=== PATIENT | male | born 1960 | race Caucasian/White ===

== ENCOUNTER → 2018-09-07 | Day surgery (SDC) | payer BC ==
[~2018-09-07] MED LIST: Bupivacaine 0.5% 10 ML SDV ONE; Dexamethasone 4 MG/ML SDV IV ONE; Glycopyrrolate 0.2 MG/ML SDV IVPUSH ONE; HYDROmorphone 1 MG/ML Syringe IV ONE; HYDROmorphone 1 MG/ML Syringe IVPUSH PRN; HYDROmorphone 2 MG Tab PO ONE; Ketorolac 30 MG/ML SDV IVPUSH ONE; Lactated Ringers 1,000 ML IV SCH; Midazolam 1 MG/ML 2 ML SDV IV ONE; Neostigmine Methylsulfate 10 MG/10 ML MDV IV ONE; Ondansetron 4 MG/2 ML SDV IV ONE; Ondansetron 4 MG/2 ML SDV IVPUSH PRN; Propofol 200 MG/20 ML SDV IV ONE; Rocuronium 50 MG/5 ML Vial IV ONE; fentaNYL 100 MCG/2 ML SDV IV ONE
--- NOTE | 2018-09-07 15:18 | OR ---
DATE OF OPERATION: 09/07/2018 PREOPERATIVE DIAGNOSIS: RECURRENT INCISIONAL HERNIA. POSTOPERATIVE DIAGNOSIS: RECURRENT INCISIONAL HERNIA. SURGEON: Ollie Giraldo MD PROCEDURE: LAPAROSCOPIC REPAIR OF RECURRENT INCISIONAL HERNIA WITH MESH. ANESTHESIA: General. ESTIMATED BLOOD LOSS: Minimum. SPECIMEN: None. INDICATION FOR PROCEDURE: This 58-year-old male has had a history of a laparoscopic cholecystectomy at the trocar site. He had a hernia in that site and this has been repaired twice with mesh both times this has recurred. I presented the option to him of laparoscopic approach instead of an open approach again. DESCRIPTION OF PROCEDURE: After adequate preparation, a 5 mm trocar was placed in the left upper quadrant and the abdomen was insufflated. Three other trocars were placed under direct vision. Examination did show a much larger hernia than I had expected. This measures approximately 2 x 3 inches and apparently it appears that the whole hernia has come apart. There is no evidence of any repair. I marked out on the external abdomen a place for overlapping mesh. A 6- inch piece of Prolene mesh was inserted through the 11 mm epigastric trocar site. This was positioned over the abdomen and sequentially tacked in place. This adequately covered the hernia defect with at least a 2- inch margin on both sides superiorly, inferiorly, and both lateral edges. No other abnormalities were noted. The abdomen was desufflated and the skin was closed with Vicryl. The size of the Prolene mesh was 6 inches x 6 inches. ANTWAN/AARON /[id number]
[2018-09-07] MEDS: Acetaminophen/HYDROcodone 325-5 MG Tab PO PRN ×2 (18:07→23:16)
[2018-09-08] MEDS: Acetaminophen/HYDROcodone 325-5 MG Tab PO PRN (05:08)
--- NOTE | 2018-09-08 08:08 | PCM.SN ---
- Free Text/Narrative Note: Doing better this AM. Pain better controlled.l PO adequate with no Nausea. Wounds OK. Post op instructions given. Dilaudid 2mg script given for pain contol at home. (#30). Can discharge today. Dr. Giraldo
== END | disposition home or self-care (01) ==
LOC: CC.SDS 08:03
PROVIDERS: ATTEND Surgery
DX: K43.2 Incisional hernia without obstruction or gangrene (principal); E66.9 Obesity, unspecified; Z68.32 Body mass index [BMI] 32.0-32.9, adult; G47.30 Sleep apnea, unspecified; Z99.89 Dependence on other enabling machines and devices; Z90.49 Acquired absence of other specified parts of digestive tract; Z88.5 Allergy status to narcotic agent
CPT/HCPCS: 49656; A9270; C1781; J1100; J1170; J1885; J2250; J2405; J2704; J2710; J3010; J3490; J7120

== ENCOUNTER 2018-09-09 18:50 | Emergency (ER) | payer BC ==
[2018-09-09] MEDS ORDERED: Sodium Chloride 0.9% 1,000 ML ONE (18:57)
[2018-09-09] MEDS ORDERED: HYDROmorphone 1 MG/ML Syringe IVPUSH ONE ×2 (19:02→22:07)
[2018-09-09] MEDS ORDERED: Ondansetron 4 MG/2 ML SDV IVPUSH STA (19:02)
--- NOTE | 2018-09-09 19:12 | EDM.PDOC ---
ED HPI GENERAL MEDICAL PROBLEM - General Chief Complaint: Gastrointestinal Problem Stated Complaint: constipated post-op Time Seen by Provider: 09/09/18 18:50 Source of Information: Reports: Patient History Limitations: Reports: No Limitations - History of Present Illness INITIAL COMMENTS - FREE TEXT/NARRATIVE: This patient is a 58 year old male that presents to the ER. Patient reports that on Monday he had umbilical hernia repair. Patient reports due to pain he had to be admitted over night. He was discharged home on Dilaudid for pain. He was able to get up and ambulate in the [place] on Monday and pain had improved to go home. Patient reports that he has not had a BM since surgery. Patient reports he is taking his oral dilaudid medication, but last dose was a 3am. Patient reports he stopped taking the pain medication because he thought it was causing constipation. The patient reports since discharge his abdomen has started hurting. He reports having pain and fullness. Patient reports that he had not had any gas. Then earlier today he took the mag citrate for constipation , than he started having cramping. He repots on the way here he did have some small gas. Patient reports having nausea. Patient denies zepeda, dizziness, v, d, f , cp, soa. Patient does report having back pain. Onset: Gradual Onset Date: 09/08/18 Duration: Constant, Getting Worse Location: Reports: Abdomen Quality: Reports: Other (Cramping) Severity: Moderate Improves with: Reports: None Worsens with: Reports: None Associated Symptoms: Reports: Loss of Appetite, Nausea/Vomiting. Denies: Confusion, Chest Pain, Cough, cough w sputum, Diaphoresis, Fever/Chills, Headaches, Malaise, Rash, Seizure, Shortness of Breath, Syncope, Weakness Treatments RECEIVING SUPERVISOR: Reports: Other (see below) Other Treatments RECEIVING SUPERVISOR: Mag Citrate Abdominal Pain Score (Numeric/FACES): 6 - Related Data Allergies Allergy/AdvReac Type Severity Reaction Status Date / Time morphine Allergy Other Verified 09/09/18 19:25 oxycodone Allergy Other Verified 09/09/18 19:25 Home Meds: Home Meds Minocycline [Minocin] 100 mg PO DAILY PRN 09/07/18 [History] HYDROmorphone [Dilaudid] 2 mg PO Q4H PRN 09/09/18 [History] ED ROS GENERAL - Review of Systems Review Of Systems: See Below Constitutional: Reports: Decreased Appetite HEENT: Reports: No Symptoms Respiratory: Reports: No Symptoms Cardiovascular: Reports: No Symptoms. Denies: Chest Pain, Edema, Lightheadedness Endocrine: Reports: No Symptoms GI/Abdominal: Reports: Abdominal Pain, Constipation, Decreased Appetite, Distension, Nausea. Denies: Vomiting : Reports: No Symptoms Musculoskeletal: Reports: No Symptoms Skin: Reports: Wound (hernia repair wounds stomach. ) Neurological: Reports: No Symptoms Psychiatric: Reports: No Symptoms Hematologic/Lymphatic: Reports: No Symptoms Immunologic: Reports: No Symptoms ED EXAM, GI/ABD - Physical Exam Exam: See Below Exam Limited By: No Limitations General Appearance: Alert, WD/WN, No Apparent Distress, Anxious Eyes: Bilateral: Normal Appearance Ears: Normal External Exam, Normal Canal, Hearing Grossly Normal, Normal TMs Nose: Normal Inspection, Normal Mucosa, No Blood Throat/Mouth: Normal Inspection, Normal Lips, Normal Teeth, Normal Gums, Normal Oropharynx, Normal Voice, No Airway Compromise Head: Atraumatic, Normocephalic Neck: Normal Inspection, Supple, Non-Tender, Full Range of Motion Respiratory/Chest: No Respiratory Distress, Lungs Clear, Normal Breath Sounds, No Accessory Muscle Use, Chest Non-Tender Cardiovascular: Normal Peripheral Pulses, Regular Rate, Rhythm, No Edema, No Gallop, No JVD, No Murmur, No Rub GI/Abdominal Exam: Distended (severe), Guarding, Tender (Moderate/Severe throughout. ), Abnormal Bowel Sounds (Hypoative upper abd bowel sounds. Absent RLQ, LLQ. ), Other (recent surgical wounds. No redness, heat, drainage from incisions. ) (Male) Exam: Deferred Rectal (Males) Exam: Deferred Back Exam: Normal Inspection, Full Range of Motion. No: CVA Tenderness (L), CVA Tenderness (R), Decreased Range of Motion, Muscle Spasm, Paraspinal Tenderness Extremities: Normal Inspection, Normal Range of Motion, Non-Tender, No Pedal Edema, Normal Capillary Refill Neurological: Alert, Oriented, Normal Cognition, Normal Gait, No Motor/Sensory Deficits Psychiatric: Normal Affect, Normal Mood Skin Exam: Warm, Dry, Intact, Normal Color, No Rash Lymphatic: No Adenopathy EKG INTERPRETATION EKG Date: 09/09/18 Time: 19:18 Rhythm: NSR Rate (Beats/Min): 74 ST-T: Normal Course - Vital Signs Last Recorded V/S: Last Vital Signs Temp 97.7 F 09/09/18 21:00 Pulse 69 09/09/18 21:00 Resp 16 09/09/18 21:00 BP 138/80 09/09/18 21:00 Pulse Ox 96 09/09/18 21:00 - Orders/Labs/Meds Orders: Active Orders 24 hr Category Date Time Status Abdomen Pelvis w Cont [CT] Stat Exams 09/09/18 19:35 Taken Chest w Cont [CT] Stat Exams 09/09/18 19:35 Taken CULTURE BLOOD [BC] Stat Lab 09/09/18 19:15 Received CULTURE BLOOD [BC] Stat Lab 09/09/18 19:25 Received Blood Culture x2 Reflex Set [OM.PC] Stat Oth 09/09/18 19:01 Ordered Labs: Laboratory Tests 09/09/18 09/09/18 09/09/18 Range/Units 19:15 19:15 19:25 WBC 12.4 H (5.0-10.0) 10^3/uL RBC 5.69 (4.50-6.00) 10^6/uL Hgb 17.8 (14.0-18.0) g/dL Hct 51.5 (40.0-54.0) % MCV 90.5 (82.0-94.0) fL MCH 31.3 (27.0-32.0) pg MCHC 34.6 (33.0-38.0) g/dL RDW Coeff of Angelica 13.6 (11.0-15.0) % Plt Count 307 (150-400) 10^3/uL Neut % (Auto) 78.4 (35-85) % Lymph % (Auto) 11.0 (10-55) % Cal[place]oun % (Auto) 9.1 (0-16) % Eos % (Auto) 1.3 (0-5) % Baso % (Auto) 0.2 (0-3) % Neut # (Auto) 9.69 H (1.80-7.00) 10^3/uL Lymph # (Auto) 1.36 (1.00-4.80) 10^3/uL Calhoun # (Auto) 1.13 H (0.00-0.80) 10^3/uL Eos # (Auto) 0.16 (0.00-0.45) 10^3/uL Baso # (Auto) 0.02 10^3/uL Sodium 138 (136-145) mEq/L Potassium 4.1 (3.5-5.0) mEq/L Chloride 98 (98-106) mEq/L Carbon Dioxide 31 (21-32) mmol/L BUN 17 (7-18) mg/dL Creatinine 1.1 (0.7-1.3) mg/dL Est Cr Clr Drug Dosing 82.30 mL/min Estimated GFR (MDRD) > 60 (>=60) mL/min Glucose 121 H (75-99) mg/dL Lactic Acid 1.0 (0.4-2.0) mmol/L Calcium 9.2 (8.4-10.1) mg/dL Total Bilirubin 1.5 H (0.0-1.0) mg/dL AST 52 H (15-37) U/L ALT 64 (12-78) U/L Alkaline Phosphatase 126 H (46-116) U/L Creatine Kinase (35-232) U/L Troponin I (0.00-0.06) ng/mL Total Protein 7.8 (6.4-8.2) g/dL Albumin 3.8 (3.4-5.0) g/dL Amylase (25-115) U/L Urine Color (YELLOW) Urine Appearance (CLEAR) Urine pH (4.5-8.0) Ur Specific [place] (1.003-1.020) Urine Protein (NEGATIVE) mg/dL Urine Glucose (UA) (NEGATIVE) mg/dL Urine Ketones (NEGATIVE) mg/dL Urine Occult Blood (NEGATIVE) Urine Nitrite (NEGATIVE) Urine Bilirubin (NEGATIVE) Urine Urobilinogen (0.2-1.0) EU/dL Ur Leukocyte Esterase (NEGATIVE) Urine RBC (0-5) /HPF Urine WBC (0-5) /HPF Ur Epithelial Cells (NOT SEEN) /HPF Urine Bacteria (NOT SEEN) /HPF Urine Mucus (NOT SEEN) /HPF 09/09/18 09/09/18 Range/Units 19:25 20:05 WBC (5.0-10.0) 10^3/uL RBC (4.50-6.00) 10^6/uL Hgb (14.0-18.0) g/dL Hct (40.0-54.0) % MCV (82.0-94.0) fL MCH (27.0-32.0) pg MCHC (33.0-38.0) g/dL RDW Coeff of Angelica (11.0-15.0) % Plt Count (150-400) 10^3/uL Neut % (Auto) (35-85) % Lymph % (Auto) (10-55) % [place] % (Auto) (0-16) % Eos % (Auto) (0-5) % Baso % (Auto) (0-3) % Neut # (Auto) (1.80-7.00) 10^3/uL Lymph # (Auto) (1.00-4.80) 10^3/uL [place] # (Auto) (0.00-0.80) 10^3/uL Eos # (Auto) (0.00-0.45) 10^3/uL Baso # (Auto) 10^3/uL Sodium (136-145) mEq/L Potassium (3.5-5.0) mEq/L Chloride (98-106) mEq/L Carbon Dioxide (21-32) mmol/L BUN (7-18) mg/dL Creatinine (0.7-1.3) mg/dL Est Cr Clr Drug Dosing mL/min Estimated GFR (MDRD) (>=60) mL/min Glucose (75-99) mg/dL Lactic Acid (0.4-2.0) mmol/L Calcium (8.4-10.1) mg/dL Total Bilirubin (0.0-1.0) mg/dL AST (15-37) U/L ALT (12-78) U/L Alkaline Phosphatase (46-116) U/L Creatine Kinase 50 (35-232) U/L Troponin I < 0.017 (0.00-0.06) ng/mL Total Protein (6.4-8.2) g/dL Albumin (3.4-5.0) g/dL Amylase 18 L (25-115) U/L Urine Color Dark yellow (YELLOW) Urine Appearance Clear (CLEAR) Urine pH 7.0 (4.5-8.0) Ur Specific [place] 1.015 (1.003-1.020) Urine Protein Trace H (NEGATIVE) mg/dL Urine Glucose (UA) Negative (NEGATIVE) mg/dL Urine Ketones Negative (NEGATIVE) mg/dL Urine Occult Blood Trace-intact H (NEGATIVE) Urine Nitrite Negative (NEGATIVE) Urine Bilirubin Negative (NEGATIVE) Urine Urobilinogen 1.0 (0.2-1.0) EU/dL Ur Leukocyte Esterase Negative (NEGATIVE) Urine RBC 0-5 (0-5) /HPF Urine WBC 0-5 (0-5) /HPF Ur Epithelial Cells Rare (NOT SEEN) /HPF Urine Bacteria Rare (NOT SEEN) /HPF Urine Mucus Occasional H (NOT SEEN) /HPF Meds: Medications Discontinued Medications Generic Name Dose Route Start Last Admin Trade Name Freq PRN Reason Stop Dose Admin Hydromorphone HCl 1 mg 09/09/18 19:02 09/09/18 19:19 Dilaudid IVPUSH 09/09/18 19:03 1 mg ONETIME ONE Administration Sodium Chloride Confirm 09/09/18 18:57 09/09/18 20:48 Normal Saline Administered 09/09/18 18:58 Not Given Dose 1,000 mls @ as directed .ROUTE .STK-MED ONE Sodium Chloride 1,000 mls @ 1,000 mls/hr 09/09/18 19:35 09/09/18 19:35 Normal Saline IV 09/09/18 20:34 1,000 mls/hr .BOLUS ONE Administration Iopamidol 150 ml 09/09/18 19:50 09/09/18 19:51 Isovue-300 (61%) IVPUSH 09/09/18 19:51 150 ml ONETIME ONE Administration Ondansetron HCl 4 mg 09/09/18 19:02 09/09/18 19:19 Zofran IVPUSH 09/09/18 19:03 4 mg NOW STA Administration - Radiology Interpretation Free Text/Narrative:: CT Chest/Abdomen/Pelvis with IV contrast: Small bowel obstruction with couple differnt transition points in pedro right lower abdomen. Pneumoperitoneum may represetn sequela of recent surgical interventions though bowel perforation is of consideration. Surgical consultation is necessary. CT Results Date: 09/09/18 CT Results Time: 21:33 - Re-Assessments/Exams Free Text/Narrative Re-Assessment/Exam: 09/09/18 19:13 After IV insertion, just before lab draw. Patient felt faint, becamse pale, clammy. Wet cold rag applied to patient forehead. Patient assisted to stretcher and to lay back, patient then had a syncopal episode lasting about 5 seconds. Patient than come too. other labs now ordered with ekg, NS, and set of vitals. 09/09/18 21:42 I called and spoke to [facility] . They have spoken to general surgeon who is currently in surgery. He would like the patient transferred to the ER at and he wants to see him in the ER. The surgeon and accepting is Dr. Uriostegui. Sandra is [facility]. Departure - Departure Time of Disposition: 21:42 Disposition: DC/Tfer to Acute Hospital 02 Condition: Serious Clinical Impression: Small bowel obstruction - Discharge Information *PRESCRIPTION DRUG MONITORING PROGRAM REVIEWED*: Not Applicable *COPY OF PRESCRIPTION DRUG MONITORING REPORT IN PATIENT MEIR: Not Applicable Referrals: Aly Resendiz MD [Primary Care Provider] - Forms: ED Department Discharge - My Orders Last 24 Hours: My Active Orders 09/09/18 19:01 Blood Culture x2 Reflex Set [OM.PC] Stat 09/09/18 19:15 CULTURE BLOOD [BC] Stat 09/09/18 19:25 CULTURE BLOOD [BC] Stat 09/09/18 19:35 Abdomen Pelvis w Cont [CT] Stat Chest w Cont [CT] Stat - Assessment/Plan Last 24 Hours: My Active Orders 09/09/18 19:01 Blood Culture x2 Reflex Set [OM.PC] Stat 09/09/18 19:15 CULTURE BLOOD [BC] Stat 09/09/18 19:25 CULTURE BLOOD [BC] Stat 09/09/18 19:35 Abdomen Pelvis w Cont [CT] Stat Chest w Cont [CT] Stat Plan: PLEASE SEE RN NOTE FOR PFSH. Patient is being transferred to . The risk verse benefits explained to the patient. The risk of transfer are mvc, , worsening of condition, vomiting. The benefits of transfer are general surgeon to assess, surgery, higher level of care. The benefits of staying in [place] are close to home. The risks of staying in [place] are , worsening of condition, bowel perforation, no surgeon.
[2018-09-09] MEDS ORDERED: Sodium Chloride 0.9% 1,000 ML IV ONE (19:35)
[2018-09-09 19:40] LABS: CHLORIDE,CL 98 mEq/L (98-106); SODIUM,NA 138 mEq/L (136-145)
[2018-09-09] MEDS ORDERED: Iopamidol 612 MG/ML 100 ML Bottle IVPUSH ONE (19:50)
== END 2018-09-09 22:30 ==
LOC: CC.ED 18:50
DX: K56.609 Unspecified intestinal obstruction, unspecified as to partial versus complete obstruction (principal); Z79.899 Other long term (current) drug therapy; Z88.5 Allergy status to narcotic agent; Z88.6 Allergy status to analgesic agent
CPT/HCPCS: 36415; 71260; 74177; 80053; 81001; 82150; 82550; 83605; 84484; 85025; 87040; 93005; 96365; 96375; 96376; 99285; J1170; J2405; J7030; Q9967